=== PATIENT | female | born 1950 | race Caucasian/White ===

== ENCOUNTER 2016-09-30 08:57 | Emergency (ER) | payer MEDICARE ==
[~2016-09-30] VITALS: Ht 160 cm; Wt 110.0 kg
[~2016-09-30 08:57] MED LIST: BENZ100 PO; CEFU1TAB43 PO; DUONI NEB; NEBUMIS25 XX; OMPR20CCR PO; TAB-TAB PO
[2016-09-30 09:02] VITALS: BP 194/105; PULSE 76; RESP 18; O2SAT 99
--- NOTE | 2016-09-30 09:11 | PD ---
HPI Chief Complaint: Fall Time Seen by Provider: 09:00 Travel History International Travel<30 days: No Contact w/Intl Traveler<30days: No Traveled to known affect area: No History of Present Illness HPI The patient is a 66-year-old female who presents emergency department via EMS after a trip and fall at home. The patient states she tripped over a box at home, landed on her right arm, she thinks it was an outstretched right arm when she fell. She denies any loss of consciousness or neck pain after the fall. She does complain of right mid humeral pain is worse with movement and slightly alleviated at rest. The patient is left-hand dominant. The patient does note a previous history of a fracture to the right wrist, but denies any history of fractures to the right humerus. She does have an orthopedist, Dr. Carias and Jovi Burden. The patient denies any numbness or tingling of the right upper extremity. She denies any other injuries with the fall. Symptoms are moderate, exacerbated after falling, and there are no current alleviating factors. PFSH Past Medical History Anemia: Yes Arthritis: Yes (Rheumatoid) Asthma: No Autoimmune Disease: Yes (Lupus) Blood Disorders: No Depression: Yes Heart Rhythm Problems: No Cancer: No Cardiovascular Problems: No High Cholesterol: No Chemotherapy: No Chest Pain: No Congestive Heart Failure: No COPD: No Cerebrovascular Accident: No Diabetes: No Diminished Hearing: No Diverticulitis: Yes Endocrine: No Gastrointestinal Disorders: Yes GERD: Yes (Take Prilosec) Glaucoma: No Genitourinary: No Headaches: No Hepatitis: No Hiatal Hernia: No Hypertension: No Immune Disorder: Yes (Rheumatoid Arthritis; Lupus) Implanted Vascular Access Dvce: Yes Kidney Stones: No Musculoskeletal: Yes (Lupus; Fibromyalgia) Neurologic: No Psychiatric: Yes Reproductive: No Respiratory: No Immunizations Current: No Migraines: No Myocardial Infarction: No Radiation Therapy: No Renal Failure: No Seizures: No Sickle Cell Disease: No Thyroid Disease: No Ulcer: No Menopausal: Yes : 5 Para: 1 Miscarriage: 4 : 0 Ectopic : Yes Tubal Ligation: Yes Past Surgical History Abdominal Surgery: Yes (Gallbladder ) AICD: No Appendectomy: No Arteriovenous Shunt: No Body Medical Devices: RIGHT FOOT 3 SCREWS Cardiac Surgery: No Cholecystectomy: No Endocrine Surgery: No Eye Surgery: Yes (Macular Hole repair Right Eye) Genitourinary Surgery: No Gynecologic Surgery: No Insulin Pump: No Joint Replacement: Yes (Left Knee, right Hip, Left foot) Oral Surgery: No Pacemaker: No Thoracic Surgery: No Tonsillectomy: Yes Other Surgery: Yes Social History Alcohol Use: Yes (OCC) Tobacco Use: No Substance Use: No Allergies-Medications (Allergen,Severity, Reaction): Coded Allergies: Sulfa (Verified Allergy, Severe, ANEMIC, SHORTNESS OF BREATH, 01/29/14) Reported Meds & Prescriptions Reported Meds & Active Scripts Active Easy Air Compressor Nebul (Nebulizers) Nebulize Mis 1 Ea XX Tessalon Perles (Benzonatate) 100 Mg Cap 100 Mg PO TID PRN 30 Days Ceftin 500 Mg Tab (Cefuroxime Axetil) 500 Mg Tab 500 Mg PO Q12HR 9 Days Resp: Albuterol/Ipratropium 2.5 Mg/0.5 Mg (Albuterol/Ipratropium) 1 Amp Nebu 1 Ampule NEB Q6HR NEB PRN 30 Days Resp: Albuterol/Ipratropium 2.5 Mg/0.5 Mg (Albuterol/Ipratropium) 1 Amp Nebu 1 Ampule NEB Q6HR NEB 30 Days Reported Prilosec 20 Mg Cap (Omeprazole) 20 Mg Capcr 20 Mg PO DAILY Multivitamin (Multivitamins) 1 Tab Tab 1 Tab PO DAILY Review of Systems Except as stated in HPI: all other systems reviewed are Neg HENT: No: Headaches, Neck Pain Cardiovascular: No: Chest Pain or Discomfort Respiratory: No: Shortness of Breath Gastrointestinal: No: Nausea, Vomiting Musculoskeletal: Positive: Limited ROM, Pain Neurologic: No: Paresthesia, Sensory Disturbance Physical Exam Narrative GENERAL: Awake, alert, pleasant 66-year-old female who appears her stated age and is in no acute respiratory distress. SKIN: Warm and dry. HEAD: Atraumatic. Normocephalic. EYES: No injection or drainage. ENT: No nasal bleeding or discharge. Mucous membranes pink and moist. NECK: Trachea midline. No JVD. No tenderness of the cervical vertebrae. MUSCULOSKELETAL: Patient has tenderness over the mid to proximal humerus. She is able to flex and extend the right wrist, but has difficulty supinating secondary to pain of the right mid humeral area. She is unable to abduct or adduct the right upper time he secondary to pain. Positive right radial pulse. Patient is able to move all 5 digits of the right hand. NEUROLOGICAL: Awake and alert. No obvious cranial nerve deficits. Motor grossly within normal limits. Normal speech. Sensation is intact to the median , ulnar, and radial distribution of the right hand. PSYCHIATRIC: Appropriate mood and affect; insight and judgment normal. Data Data Last Documented VS Vital Signs Date Time Temp Pulse Resp B/P Pulse Ox O2 Delivery O2 Flow Rate FiO2 09/30/16 09:07 100 Room Air 09/30/16 09:02 76 18 194/105 Orders Humerus (Min 2vws) (09/30/16 ) Morphine Inj (Morphine Inj) (09/30/16 09:15) Ondansetron Inj (Zofran Inj) (09/30/16 09:15) Support Splint (09/30/16 10:25) MDM Medical Decision Making Medical Screen Exam Complete: Yes Emergency Medical Condition: Yes Medical Record Reviewed: Yes Interpretation(s) Last Impressions Humerus X-Ray 09/30/16 0000 Signed Impressions: Service Date/Time: Friday, September 30, 2016 09:54 - CONCLUSION: Humeral head fracture. Elvin Copeland MD FACR Differential Diagnosis Differential diagnosis includes mid humeral fracture, proximal humeral head fracture, dislocation, contusion, hematoma, sprain. Narrative Course X-ray of the right humerus was obtained. IV was established and the patient was administered morphine and Zofran for her pain. X-ray reveals proximal humeral head fracture. The patient was placed in a sling and administer Percocet 5 mg orally prior to discharge. The patient is advised to follow-up with her orthopedist. Pain medications as directed, ice to the elbow, and orthopedic follow-up. Diagnosis Primary Impression: Fracture of humeral head Qualified Code: S42.291A - Fracture of humeral head, right, closed, initial encounter Patient Instructions: General Instructions Additional Instructions: Medications as directed. Sling as directed. Follow-up with your orthopedic physician. Ice as needed. Ibuprofen as needed. Med/Other Pt SpecificInfo: Prescription(s) given Scripts Oxycodone-Acetaminophen (Percocet)5-325 mg Tab1 Tab PO Q6H PRN (PAIN) #20 TAB Ref 0 Prov:Chris Escalante MD 09/30/16 Disposition: 01 DISCHARGE HOME Condition: Stable Chris Escalante MD Sep 30, 2016 09:11
[2016-09-30] MEDS ORDERED: ONDANSETRON HCL 4 MG/2 ML VIAL IV PUSH ONE (09:15)
[2016-09-30] MEDS ORDERED: MORPHINE SULFATE 4 MG/ML INJ IV PUSH ONE (09:15)
--- NOTE | 2016-09-30 10:21 | RADRPT ---
EXAM DATE/TIME: 09/30/2016 09:54 [facility] COMPARISON: No previous studies available for comparison. INDICATIONS : Fall. Right proximal humerus pain. MEDICAL HISTORY : Lupus. SURGICAL HISTORY : None. ENCOUNTER: Initial ACUITY: 1 day PAIN SCORE: 9/10 LOCATION: Right proximal humerus FINDINGS: There is fracture of the humeral head involving the surgical neck. Alignment at the glenoid is anato jay. CONCLUSION: Humeral head fracture. Elvin Copeland MD FACR on September 30, 2016 at 10:19 Board Certified Radiologist. This report was verified electronically.
[2016-09-30] MEDS ORDERED: PERC5TAB12 PO (11:05)
[2016-09-30] MEDS ORDERED: oxyCODONE/ACETAMINOPHEN 5 MG/325 MG TAB PO ONE (11:15)
== END 2016-09-30 11:50 | disposition home or self-care (01) ==
LOC: NEPE 08:57
DX: S42.211A Unspecified displaced fracture of surgical neck of right humerus, initial encounter for closed fracture (principal); M32.9 Systemic lupus erythematosus, unspecified; M79.7 Fibromyalgia; M06.9 Rheumatoid arthritis, unspecified; W18.09XA Striking against other object with subsequent fall, initial encounter; Y92.009 Unspecified place in unspecified non-institutional (private) residence as the place of occurrence of the external cause
CPT/HCPCS: 29240; 73060; 96374; 96375; 99284; J2270; J2405